=== PATIENT | male | born 1950 | race Caucasian/White ===

== ENCOUNTER 2018-03-15 19:06 | Emergency (ER) | payer MEDICARE ==
[~2018-03-15] VITALS: Ht 180.3 cm; Wt 102.7 kg
[~2018-03-15 19:06] MED LIST: ASPI-611 PO; ATOR20TA PO; BUPR150T8 PO; CLOP75TA15 PO; INSU100C4 SQ; LANTUS SUBCUT; LISI10TA4 PO; METO25TA6 PO
[2018-03-15 19:29] LABS: BASOPHILS % (AUTO) 0.4 % (0-1); EOSINOPHILS # (AUTO) 0.2 X10'3 (0-0.9); EOSINOPHILS % (AUTO) 1.9 % (0-6); HEMATOCRIT 44.3 % (42.0-52.0); HEMOGLOBIN 15.2 g/dl (14.0-17.9); LYMPHOCYTES % (AUTO) 32.7 % (21-51); MEAN CORPUSCULAR HEMOGLOBIN 32.1 PG (27.0-31.0); MEAN CORPUSCULAR HGB CONC 34.4 % (33.0-36.5); MEAN CORPUSCULAR VOLUME 93.3 FL (78-98); MONOCYTES # (AUTO) 0.9 X10'3 (0-0.9); MONOCYTES % (AUTO) 9.7 % (2-12); NEUTROPHILS # (AUTO) 5.1 X10'3 (1.8-7.7); NEUTROPHILS % (AUTO) 55.3 % (42-75); PLATELET COUNT 170 X10'3 (140-440); RED BLOOD COUNT 4.75 X10'6 (4.70-6.10); RED CELL DISTRIBUTION WIDTH 14.5 % (11.5-14.5); WHITE BLOOD COUNT 9.3 X10'3 (4.5-11.0)
[2018-03-15 19:31] VITALS: BP 155/80
[2018-03-15 19:38] LABS: PARTIAL THROMBOPLASTIN TIME 24 SECONDS (22-32); PROTHROMBIN TIME 10.4 SECONDS (9.0-12.0)
[2018-03-15] MEDS ORDERED: LORazepam 2 mg/ml vial IV ONE (19:40)
[2018-03-15 19:44] LABS: ALANINE AMINOTRANSFERASE 30 U/L (12-78); ALBUMIN/GLOBULIN RATIO 1.3 (1.1-1.5); ALKALINE PHOSPHATASE 66 IU/L (46-116); ANION GAP 5 (8-16); ASPARTATE AMINO TRANSFERASE 20 U/L (10-37); BILIRUBIN,TOTAL 0.3 MG/DL (0.1-1.0); BLOOD UREA NITROGEN 19 MG/DL (7-18); BUN/CREATININE RATIO 20.2 (5.4-32.0); CALCIUM 8.9 MG/DL (8.5-10.1); CHLORIDE 106 MMOL/L (99-107); CREATININE 0.94 MG/DL (0.60-1.10); GLUCOSE 56 MG/DL (70-104); POTASSIUM 3.8 MMOL/L (3.5-5.1); SODIUM 141 MMOL/L (135-145); TOTAL PROTEIN 7.2 G/DL (6.4-8.2); eGFR 81 ML/MIN
== END 2018-03-15 21:29 | disposition home or self-care (01) ==
LOC: ER 19:06
DX: R07.89 Other chest pain (principal); R53.83 Other fatigue; I25.10 Atherosclerotic heart disease of native coronary artery without angina pectoris; I25.2 Old myocardial infarction; E10.9 Type 1 diabetes mellitus without complications; Z87.442 Personal history of urinary calculi; Z79.82 Long term (current) use of aspirin; Z79.4 Long term (current) use of insulin; Z79.899 Other long term (current) drug therapy
CPT/HCPCS: 36415; 71045; 80053; 84484; 85025; 85610; 85730; 93005; 96374; 99285; J2060

== ENCOUNTER 2018-09-03 02:31 | Emergency (ER) | payer MEDICARE ==
[~2018-09-03] VITALS: Ht 180.3 cm; Wt 92.0 kg
[2018-09-03] MEDS ORDERED: ketorolac trometh inj. 60 MG/2 ML VIAL IM ONE (03:10)
[2018-09-03] MEDS ORDERED: HYDR-4384 PO (03:11)
[2018-09-03 03:27] VITALS: BP 152/88
== END 2018-09-03 03:50 | disposition home or self-care (01) ==
LOC: ER 02:31
DX: M54.2 Cervicalgia (principal); M25.512 Pain in left shoulder; I25.10 Atherosclerotic heart disease of native coronary artery without angina pectoris; E11.9 Type 2 diabetes mellitus without complications; Z79.82 Long term (current) use of aspirin; Z79.4 Long term (current) use of insulin; Z79.899 Other long term (current) drug therapy
CPT/HCPCS: 82948; 96372; 99283; J1885

== ENCOUNTER 2018-09-10 02:08 | Emergency (ER) | payer MEDICARE ==
[~2018-09-10] VITALS: Ht 180.3 cm; Wt 101.0 kg
[2018-09-10 02:10] VITALS: BP 158/82
== END 2018-09-10 03:13 | disposition left against medical advice (07) ==
LOC: ER 02:09
DX: M25.512 Pain in left shoulder (principal); I25.10 Atherosclerotic heart disease of native coronary artery without angina pectoris; I25.2 Old myocardial infarction; E11.9 Type 2 diabetes mellitus without complications; Z98.890 Other specified postprocedural states; Z79.82 Long term (current) use of aspirin; Z79.4 Long term (current) use of insulin; Z79.899 Other long term (current) drug therapy
CPT/HCPCS: 99281

== ENCOUNTER 2022-02-25 10:12 | Day surgery (SDC) | payer MEDICARE ==
[2022-02-17 09:49] LABS: BASOPHILS % (AUTO) 0.5 % (0-1); EOSINOPHILS # (AUTO) 0.1 X10'3 (0-0.9); HEMATOCRIT 44.8 % (42.0-52.0); HEMOGLOBIN 15.3 g/dl (14.0-17.9); LYMPHOCYTES # (AUTO) 1.7 X10'3 (1.1-4.8); LYMPHOCYTES % (AUTO) 23.8 % (21-51); MEAN CORPUSCULAR HEMOGLOBIN 31.5 PG (27.0-31.0); MEAN CORPUSCULAR HGB CONC 34.1 g/dL (33.0-36.5); MEAN CORPUSCULAR VOLUME 92.4 FL (78-98); MEAN PLATELET VOLUME 9.3 FL (7.4-10.4); MONOCYTES # (AUTO) 0.8 X10'3 (0-0.9); MONOCYTES % (AUTO) 12.1 % (2-12); NEUTROPHILS # (AUTO) 4.4 X10'3 (1.8-7.7); NEUTROPHILS % (AUTO) 62.6 % (42-75); PLATELET COUNT 182 X10'3 (140-440); RED BLOOD COUNT 4.85 X10'6 (4.70-6.10); RED CELL DISTRIBUTION WIDTH 14.7 % (11.5-14.5)
[2022-02-17 10:00] LABS: APTT 27 SECONDS (22-32)
[2022-02-17 10:12] LABS: ALBUMIN 3.6 G/DL (3.4-5.0); ANION GAP 9 (8-16); BLOOD UREA NITROGEN 23 MG/DL (7-18); CALCIUM 8.7 MG/DL (8.5-10.1); CHLORIDE 105 MMOL/L (99-107); CREATININE 0.96 MG/DL (0.60-1.10); GLUCOSE 85 MG/DL (70-104); POTASSIUM 4.5 MMOL/L (3.5-5.1); SODIUM 138 MMOL/L (135-145); TOTAL CARBON DIOXIDE 23.8 MMOL/L (24-32); eGFR 78 ML/MIN
[~2022-02-25] VITALS: Ht 180.3 cm; Wt 99.6 kg
[2022-02-25] VITALS (22 sets, daily range): BP systolic 82–116; BP diastolic 51–83
[~2022-02-25 10:12] MED LIST changes: +LISI10TA27 PO; -LISI10TA4 PO; +LOP25T PO; -METO25TA6 PO
[2022-02-25] MEDS ORDERED: normal saline 1000ml 1,000 ML IV SCH (10:40)
[2022-02-25] MEDS ORDERED: MIDAZolam 1mg/ml 10ml vial IV ONE (10:40)
[2022-02-25] MEDS ORDERED: fentaNYL/PF 50MCG/1 ML 2ML syringe IV ONE (10:40)
[2022-02-25] MEDS ORDERED: APIX5TAB3 PO (10:47)
[2022-02-25] MEDS ORDERED: OMEG1CAP46 PO (10:47)
[2022-02-25] MEDS ORDERED: MULT-1074 PO (10:47)
== END 2022-02-25 15:55 | disposition home or self-care (01) ==
LOC: SSTAY O 10:12
PROVIDERS: ATTEND Student in an Organized Health Care Education/Training Program
DX: I48.91 Unspecified atrial fibrillation (principal); I48.92 Unspecified atrial flutter; E11.9 Type 2 diabetes mellitus without complications; I10 Essential (primary) hypertension; I25.10 Atherosclerotic heart disease of native coronary artery without angina pectoris; Z79.4 Long term (current) use of insulin; Z79.899 Other long term (current) drug therapy; Z98.890 Other specified postprocedural states
CPT/HCPCS: 36415; 80048; 82948; 85025; 85610; 85730; 92960; 93005; 94799; J2250; J3010; J7030; A4620